=== PATIENT | male | born 1960 ===

== ENCOUNTER 2020-09-10 23:42 | Emergency (ER) | payer SELFPAY ==
--- NOTE | 2020-09-11 00:07 | ED ---
General Adult HPI - General Chief complaint: Chest Pain Stated complaint: Chest Pain Time Seen by Provider: 09/10/20 23:50 Source: patient, police, EMS Mode of arrival: EMS Limitations: no limitations - History of Present Illness Initial comments: 60-year-old male patient presents to the emergency department today for evaluation of headache and chest pain. Patient is being arrested when he started to have substernal chest pain. Denies radiation through to his back. He is reporting some left arm pain. States he also has a headache. States he did hit his head, he is refusing to provide information surrounding the head injury. Denies any loss of consciousness. States he doesn't remember what medications he takes, unsure Of Blood Thinning Medication. Denies Alcohol Use Today. Patient is being resistive to answering questions and is upset about being arrested. Patient denies any recent rash, fever, chills, cough, shortness of breath, abdominal pain, nausea, vomiting, diarrhea, constipation, back pain, numbness, tingling, dizziness, weakness, hematuria, dysuria, urinary urgency, urinary frequency, visual changes, or any other complaints. Does have history of diabetes, hypertension, and does smoke cigarettes. - Related Data Allergies Allergy/AdvReac Type Severity Reaction Status Date / Time ampicillin Allergy Rash/Hives Verified 09/10/20 23:55 Penicillins Allergy Rash/Hives Verified 09/10/20 23:54 Review of Systems ROS Statement: Those systems with pertinent positive or pertinent negative responses have been documented in the HPI. ROS Other: All systems not noted in ROS Statement are negative. Past Medical History Past Medical History: Diabetes Mellitus, Hypertension History of Any Multi-Drug Resistant Organisms: None Reported Past Surgical History: No Surgical Hx Reported Past Psychological History: No Psychological Hx Reported, Bipolar Smoking Status: Current every day smoker Past Alcohol Use History: None Reported Past Drug Use History: None Reported General Exam Limitations: no limitations General appearance: alert, in no apparent distress, other (Physical well- developed, well-nourished adult male patient in no acute distress. Vital signs upon presentation 98.1F, pulse 76, respirations 20, blood pressure 118/73, pulse ox 98% on room air.) Eye exam: Present: normal appearance, PERRL, EOMI. Absent: scleral icterus, conjunctival injection, nystagmus, periorbital swelling ENT exam: Present: normal exam, normal oropharynx, mucous membranes moist Neck exam: Present: normal inspection, full ROM, other (Nontender, no step-off, no deformity to firm midline palpation of the posterior cervical spine. Full range of motion without pain or limitation.). Absent: tenderness, meningismus, lymphadenopathy Respiratory exam: Present: normal lung sounds bilaterally. Absent: respiratory distress, wheezes, rales, rhonchi, stridor Cardiovascular Exam: Present: regular rate, normal rhythm, normal heart sounds. Absent: systolic murmur, diastolic murmur, rubs, gallop, clicks GI/Abdominal exam: Present: soft, normal bowel sounds. Absent: distended, tenderness, guarding, rebound, rigid Neurological exam: Present: alert, oriented X3, CN II-XII intact Psychiatric exam: Present: normal affect, normal mood Skin exam: Present: warm, dry, intact, normal color. Absent: rash Course Vital Signs 09/10/20 09/11/20 09/11/20 23:43 01:19 01:42 Temperature 98.1 F 98 F Pulse Rate 76 80 74 Respiratory 20 18 18 Rate Blood Pressure 118/73 118/73 158/89 O2 Sat by Pulse 98 97 100 Oximetry EKG Findings - EKG Comments: EKG Findings:: EKG obtained at 2349 shows normal sinus rhythm with a ventricular rate 83, [place] interval 136, QRS duration 96, QT 386, QTc 453. No evidence of ST elevation or depression. Medical Decision Making - Medical Decision Making 60-year-old male patient presents to the emergency department today reporting headache and chest pain after being arrested. Physical examination is unremarkable. He is neurologically intact without deficits. Lungs are clear to auscultation with good air movement. EKG showed no ST elevation or depression. Labs reviewed and are unremarkable. Troponin negative. CT brain is negative. Chest x-ray negative. A be discharged into police custody. Instructed to follow-up the primary care physician as soon as possible. Return parameters were discussed in detail. He verbalizes understanding. My attending is Dr. William. - Lab Data Result diagrams: 09/11/20 00:09 09/11/20 00:09 Lab Results 09/11/20 09/11/20 09/11/20 Range/Units 00:09 00:09 00:09 WBC 7.5 (3.8-10.6) k/uL RBC 4.75 (4.30-5.90) m/uL Hgb 13.8 (13.0-17.5) gm/dL Hct 40.6 (39.0-53.0) % MCV 85.4 (80.0-100.0) fL MCH 29.1 (25.0-35.0) pg MCHC 34.0 (31.0-37.0) g/dL RDW 13.2 (11.5-15.5) % Plt Count 228 (150-450) k/uL MPV 7.7 Neutrophils % 57 % Lymphocytes % 33 % Monocytes % 6 % Eosinophils % 2 % Basophils % 1 % Neutrophils # 4.3 (1.3-7.7) k/uL Lymphocytes # 2.5 (1.0-4.8) k/uL Monocytes # 0.4 (0-1.0) k/uL Eosinophils # 0.2 (0-0.7) k/uL Basophils # 0.1 (0-0.2) k/uL PT 10.5 (9.0-12.0) sec INR 1.0 (<1.2) APTT 24.2 (22.0-30.0) sec Sodium 138 (137-145) mmol/L Potassium 3.7 (3.5-5.1) mmol/L Chloride 105 (98-107) mmol/L Carbon Dioxide 27 (22-30) mmol/L Anion Gap 6 mmol/L BUN 14 (9-20) mg/dL Creatinine 0.74 (0.66-1.25) mg/dL Est GFR (CKD-EPI)AfAm >90 (>60 ml/min/1.73 sqM) Est GFR (CKD-EPI)NonAf >90 (>60 ml/min/1.73 sqM) Glucose 148 H (74-99) mg/dL Calcium 9.5 (8.4-10.2) mg/dL Magnesium 1.8 (1.6-2.3) mg/dL Total Bilirubin 0.6 (0.2-1.3) mg/dL AST 48 (17-59) U/L ALT 35 (4-49) U/L Alkaline Phosphatase 98 (38-126) U/L Troponin I (0.000-0.034) ng/mL Total Protein 6.8 (6.3-8.2) g/dL Albumin 4.1 (3.5-5.0) g/dL Serum Alcohol <10 mg/dL 09/11/20 Range/Units 00:09 WBC (3.8-10.6) k/uL RBC (4.30-5.90) m/uL Hgb (13.0-17.5) gm/dL Hct (39.0-53.0) % MCV (80.0-100.0) fL MCH (25.0-35.0) pg MCHC (31.0-37.0) g/dL RDW (11.5-15.5) % Plt Count (150-450) k/uL MPV Neutrophils % % Lymphocytes % % Monocytes % % Eosinophils % % Basophils % % Neutrophils # (1.3-7.7) k/uL Lymphocytes # (1.0-4.8) k/uL Monocytes # (0-1.0) k/uL Eosinophils # (0-0.7) k/uL Basophils # (0-0.2) k/uL PT (9.0-12.0) sec INR (<1.2) APTT (22.0-30.0) sec Sodium (137-145) mmol/L Potassium (3.5-5.1) mmol/L Chloride (98-107) mmol/L Carbon Dioxide (22-30) mmol/L Anion Gap mmol/L BUN (9-20) mg/dL Creatinine (0.66-1.25) mg/dL Est GFR (CKD-EPI)AfAm (>60 ml/min/1.73 sqM) Est GFR (CKD-EPI)NonAf (>60 ml/min/1.73 sqM) Glucose (74-99) mg/dL Calcium (8.4-10.2) mg/dL Magnesium (1.6-2.3) mg/dL Total Bilirubin (0.2-1.3) mg/dL AST (17-59) U/L ALT (4-49) U/L Alkaline Phosphatase (38-126) U/L Troponin I <0.012 (0.000-0.034) ng/mL Total Protein (6.3-8.2) g/dL Albumin (3.5-5.0) g/dL Serum Alcohol mg/dL - Radiology Data Radiology results: report reviewed, image reviewed CT brain without contrast obtained. Report is reviewed in its entirety. Impression by Dr. Ball shows head computed tomography scan normal for age. Minimal ethmoid sinusitis. Two-view x-ray of the chest was obtained report reviewed in its entirety. Impression by Dr. Ball shows no active cardiopulmonary disease. Disposition Clinical Impression: Headache, Chest pain, Medical clearance for incarceration Disposition: HOME SELF-CARE Condition: Good Instructions (If sedation given, give patient instructions): Chest Pain (ED), Acute Headache (ED) Is patient prescribed a controlled substance at d/c from ED?: No Referrals: None,Stated [Primary Care Provider] - 1-2 days Time of Disposition: 01:33
--- NOTE | 2020-09-11 00:32 | XR ---
EXAMINATION TYPE: XR chest 2V DATE OF EXAM: 09/11/2020 COMPARISON: NONE HISTORY: Chest pain TECHNIQUE: 2 views FINDINGS: There is no heart failure nor confluent pneumonic infiltrate. Costophrenic angles are clear . There are chest leads. There are no hilar masses. Bony thorax is intact. IMPRESSION: No active cardiopulmonary disease.
[2020-09-11 00:34] LABS: Partial Thromboplastin Time 24.2 sec (22.0-30.0); Prothrombin Time 10.5 sec (9.0-12.0)
[2020-09-11 00:35] LABS: ALT 35 U/L (4-49); AST 48 U/L (17-59); African American GFR (CKD) >90 (>60 ml/min/1.73 sqM); Albumin 4.1 g/dL (3.5-5.0); Alcohol <10 mg/dL; Alkaline Phosphatase 98 U/L (38-126); Anion Gap 6 mmol/L; Blood Urea Nitrogen 14 mg/dL (9-20); Calcium 9.5 mg/dL (8.4-10.2); Carbon Dioxide 27 mmol/L (22-30); Chloride 105 mmol/L (98-107); Glucose 148 mg/dL (74-99); Magnesium 1.8 mg/dL (1.6-2.3); Non-African American GFR(CKD) >90 (>60 ml/min/1.73 sqM); Potassium 3.7 mmol/L (3.5-5.1); Sodium 138 mmol/L (137-145); Total Bilirubin 0.6 mg/dL (0.2-1.3); Total Protein 6.8 g/dL (6.3-8.2)
[2020-09-11 00:36] LABS: Basophils # (A) 0.1 k/uL (0-0.2); Basophils % (A) 1 %; Eosinophils # (A) 0.2 k/uL (0-0.7); Eosinophils % (A) 2 %; HCT 40.6 % (39.0-53.0); HGB 13.8 gm/dL (13.0-17.5); Lymphocytes # (A) 2.5 k/uL (1.0-4.8); Lymphocytes % (A) 33 %; MCH 29.1 pg (25.0-35.0); MCV 85.4 fL (80.0-100.0); Mean Platelet Volume 7.7; Monocytes # (A) 0.4 k/uL (0-1.0); Monocytes % (A) 6 %; Neutrophils # (A) 4.3 k/uL (1.3-7.7); Neutrophils % (A) 57 %; Platelet Count 228 k/uL (150-450); RBC 4.75 m/uL (4.30-5.90); RDW 13.2 % (11.5-15.5); WBC 7.5 k/uL (3.8-10.6)
--- NOTE | 2020-09-11 00:55 | CT ---
EXAMINATION TYPE: CT brain wo con DATE OF EXAM: 09/11/2020 COMPARISON: None HISTORY: ams CT DLP: 1568.4 mGycm Automated exposure control for dose reduction was used. Ventricles have normal size. There is no mass effect nor midline shift. There is no sign of intracran ial hemorrhage. The calvarium is intact. The skull base is intact. There is minimal mucosal thickenin g in the ethmoid air cells. Mastoid sinuses appear normal. IMPRESSION: Head CT scan is normal for age. Minimal ethmoid sinusitis.
[2020-09-11 01:20] VITALS: RESP 18
[2020-09-11 01:43] VITALS: BP 158/89; PULSE 74; TEMP 98
== END 2020-09-11 01:42 | disposition home or self-care (01) ==
LOC: EC 23:42
DX: Z00.8 Encounter for other general examination (principal); R07.2 Precordial pain; R51.9 Headache, unspecified; I10 Essential (primary) hypertension; E11.9 Type 2 diabetes mellitus without complications; F17.200 Nicotine dependence, unspecified, uncomplicated; Z88.0 Allergy status to penicillin
CPT/HCPCS: 36415; 70450; 71046; 80053; 80320; 83735; 84484; 85025; 85610; 85730; 93005; 99285

== ENCOUNTER 2021-03-07 10:53 | Inpatient (IN) | payer OTHER ==
--- NOTE | 2021-03-07 12:11 | ED ---
General Adult HPI - General Chief complaint: Psychiatric Symptoms Stated complaint: petition Time Seen by Provider: 03/07/21 11:18 Source: patient Mode of arrival: ambulatory Limitations: language barrier - History of Present Illness Initial comments: Dictation was produced using [employer] dictation software. please excuse any grammatical, word or spelling errors. Chief Complaint: 60-year-old male presents emergency department for symptoms of acute psychosis History of Present Illness: 60-year-old male presents emergency department for worsening psychotic symptoms. Patient allegedly has a history of psychiatric disease. He is a poor historian. Presents with [employer]. Patient unable to provide history present illness. He's been having rambling speech. Going to L[facility] patient is known for talking to himself however there is been concerns that he has not been taking his medications. Patient petitioned by [facility]. The ROS documented in this emergency department record has been reviewed and confirmed by me. Those systems with pertinent positive or negative responses have been documented in the HPI. All other systems are other negative and/or noncontributory. PHYSICAL EXAM: General Impression: Alert and oriented x3, not in acute distress HEENT: Normocephalic atraumatic, extra-ocular movements intact, pupils equal and reactive to light bilaterally, mucous membranes moist. Cardiovascular: Heart regular rate and rhythm Chest: Able to complete full sentences, no retractions, no tachypnea Abdomen: abdomen soft, non-tender, non-distended, no organomegaly Musculoskeletal: Pulses present and equal in all extremities, no peripheral edema Motor: no focal deficits noted Neurological: CN II-XII grossly intact, no focal motor or sensory deficits noted Skin: Intact with no visualized rashes Psych: Tangential speech, flat affect ED course: 60-year-old male presents to the emergency department for worsening psychotic symptoms. He is not been compliant with his psychiatric medications. Vital signs upon arrival are within acceptable limits. Urinalysis does not show any UTI. Blood glucose is normal. Patient medically cleared for EPS. EPS we'll have patient admitted to inpatient psychiatry. Certification documentation was completed. - Related Data Home Medications Medication Instructions Recorded Confirmed Atorvastatin [Lipitor] 20 mg PO HS 03/07/21 03/07/21 Ciprofloxacin HCl [Cipro] 500 mg PO BID 03/07/21 03/07/21 glipiZIDE [Glucotrol] 5 mg PO DAILY 03/07/21 03/07/21 metFORMIN HCL [Glucophage] 850 mg PO TID 03/07/21 03/07/21 Allergies Allergy/AdvReac Type Severity Reaction Status Date / Time ampicillin Allergy Rash/Hives Verified 03/07/21 12:45 Penicillins Allergy Rash/Hives Verified 03/07/21 12:45 Review of Systems ROS Statement: Those systems with pertinent positive or pertinent negative responses have been documented in the HPI. ROS Other: All systems not noted in ROS Statement are negative. Past Medical History Past Medical History: Diabetes Mellitus, Hypertension History of Any Multi-Drug Resistant Organisms: None Reported Past Surgical History: No Surgical Hx Reported Past Psychological History: No Psychological Hx Reported, Bipolar Smoking Status: Current every day smoker Past Alcohol Use History: None Reported Past Drug Use History: None Reported General Exam Limitations: language barrier Course Vital Signs 03/07/21 11:01 Temperature 98.2 F Pulse Rate 91 Respiratory 18 Rate Blood Pressure 131/84 O2 Sat by Pulse 97 Oximetry Medical Decision Making - Lab Data Lab Results 03/07/21 03/07/21 Range/Units 13:07 13:25 POC Glucose (mg/dL) 89 (75-99) mg/dL POC Glu Field Research Assistant ID Pushpa Pope Urine Color Yellow Urine Appearance Clear (Clear) Urine pH 5.0 (5.0-8.0) Ur Specific Banks 1.018 (1.001-1.035) Urine Protein Trace H (Negative) Urine Glucose (UA) 4+ H (Negative) Urine Ketones Negative (Negative) Urine Blood Negative (Negative) Urine Nitrite Negative (Negative) Urine Bilirubin Negative (Negative) Urine Urobilinogen <2.0 (<2.0) mg/dL Ur Leukocyte Esterase Negative (Negative) Disposition Clinical Impression: Psychosis Disposition: ADMITTED IP TO THIS HOSP Condition: Fair Referrals: Nonstaff,Physician [Primary Care Provider] - 1-2 days
[2021-03-07 13:08] LABS: Glucose,Whole Blood 89 mg/dL (75-99)
[2021-03-07 13:56] LABS: Appearance,Urine Clear (Clear); Bilirubin,Urine Negative (Negative); Blood,Urine Negative (Negative); Color,Urine Yellow; Glucose,Urine (UA) 4+ (Negative); Ketones,Urine Negative (Negative); Leukocyte Esterase,Urine Negative (Negative); Nitrite,Urine Negative (Negative); Protein,Urine Trace (Negative); Specific Gravity,Urine 1.018 (1.001-1.035); Urobilinogen,Urine <2.0 mg/dL (<2.0)
[2021-03-07] MEDS ORDERED: MAG HYDROX/AL HYDROX/SIMETH 30 ML CUP PO PRN (16:34)
[2021-03-07] MEDS ORDERED: MAGNESIUM HYDROXIDE 2,400 MG/10 ML CUP PO PRN (16:34)
[2021-03-07] MEDS ORDERED: ACETAMINOPHEN TAB 325 MG TAB PO PRN (16:34)
[2021-03-07] MEDS ORDERED: haloperidoL 5 MG TAB PO PRN (16:38)
[2021-03-07] MEDS ORDERED: HALOPERIDOL LACTATE 5 MG/ML 1 ML VIAL IM PRN (16:38)
[2021-03-07 17:38] LABS: Glucose,Whole Blood 110 mg/dL (75-99)
[2021-03-07] MEDS: NICOTINE 14MG/24HR PATCH TRANSDERM SCH (18:05)
[2021-03-07] MEDS: ATORVASTATIN 20 MG TAB PO SCH (22:16)
[2021-03-07] MEDS: metFORMIN 850 MG TAB PO SCH (22:16)
--- NOTE | 2021-03-08 01:03 | P.CONS ---
History of Present Illness - Reason for Consult Consult date: 03/07/21 - History of Present Illness The patient is a 60-year-old male with a PMH of psychiatric illnesses, type II DM and hyperlipidemia who was brought into the emergency room under police custody due to erratic behavior and disorganized thought process. The patient was admitted with mental health unit where he was seen and evaluated. The patient continued having disorganized and tangential thought process. He kept inquiring about wanting to undergo surgeries of his abdomen although could not state any particular reason. He also inquired multiple times about wanting to undergo radiological scans and surgery for his brain for reasons he could not explain. He denied chest discomfort, nausea, vomiting, abdominal pain, diarrhea. Denied fever, chills. Review of systems: Pertinent positives and negatives as discussed in HPI, a complete review of systems was performed and all other systems are negative. Physical examination: General: non toxic, no distress, appears at stated age, morbidly obese Derm: no unusual rashes/lesions no unusual ecchymoses, warm, dry Head: atraumatic, normocephalic, symmetric Eyes: EOMI, no lid lag, anicteric sclera, pupils equal round reactive to light ENT: Nose and ears atraumatic, no thrush, no pharyngeal erythema Neck: No thyromegaly, no cervical lymphadenopathy, trachea midline, supple Mouth: no lip lesion, mucus membranes moist Cardiovascular: S1S2 reg, no murmur, positive posterior tibial pulse bilateral, no edema, capillary refill less than 2 seconds Lungs: CTA bilateral, no rhonchi, no rales , no accessory muscle use Abdominal: soft, nontender to palpation, no guarding, no appreciable organomegaly, normal bowel sounds Ext: no gross muscle atrophy, muscle strength 5 out of 5 in all 4 extremities grossly, no contractures, Neuro: CN II-XI grossly intact, light touch intact all 4 extremities, finger to nose within normal limits, Psych: Alert, oriented, disorganized and tangential thought process Assessment/plan Chronic conditions: Type II DM, hyperlipidemia -Continue with home meds Psychosis -As per psychiatry Thank you for allowing us to participate in the care of this patient. We will follow peripherally. Do not hesitate to contact us with questions. Someone can be reached from the [facility] hospitalist group at all hours of the day at [phone]. Past Medical History Past Medical History: Diabetes Mellitus, Hypertension History of Any Multi-Drug Resistant Organisms: None Reported Past Surgical History: No Surgical Hx Reported Past Anesthesia/Blood Transfusion Reactions: No Reported Reaction Past Psychological History: No Psychological Hx Reported, Bipolar Smoking Status: Current every day smoker Past Alcohol Use History: None Reported Past Drug Use History: None Reported - Past Family History Father Family Medical History: Unable to Obtain Additional Family Medical History / Comment(s): Patient poor historian Medications and Allergies Home Medications Medication Instructions Recorded Confirmed Type Atorvastatin [Lipitor] 20 mg PO HS 03/07/21 03/07/21 History Ciprofloxacin HCl [Cipro] 500 mg PO BID 03/07/21 03/07/21 History glipiZIDE [Glucotrol] 5 mg PO DAILY 03/07/21 03/07/21 History metFORMIN HCL [Glucophage] 850 mg PO TID 03/07/21 03/07/21 History Allergies Allergy/AdvReac Type Severity Reaction Status Date / Time ampicillin Allergy Rash/Hives Verified 03/07/21 12:45 Penicillins Allergy Rash/Hives Verified 03/07/21 12:45 Physical Exam Vitals: Vital Signs Temp Pulse Pulse Resp BP BP Pulse Ox 03/07/21 17:13 98.6 F 91 18 127/76 03/07/21 11:01 98.2 F 91 18 131/84 97 Intake and Output 03/07/21 03/07/21 03/07/21 06:59 14:59 22:59 Other: Weight 108.862 kg 108.862 kg Results Labs: Abnormal Lab Results - Last 24 Hours (Table) 03/07/21 03/07/21 Range/Units 13:25 17:37 POC Glucose (mg/dL) 110 H (75-99) mg/dL Urine Protein Trace H (Negative) Urine Glucose (UA) 4+ H (Negative)
[2021-03-08] MEDS ORDERED: chlorproMAZINE 25 MG/ML 2 ML AMP IM ONE (01:38)
[2021-03-08] MEDS ORDERED: chlorproMAZINE 25 MG/ML 2 ML AMP IM PRN (01:39)
[2021-03-08] MEDS ORDERED: chlorproMAZINE 25 MG TAB PO PRN (01:39)
[2021-03-08] MEDS: LORazepam 2 MG/ML INJ IM PRN (01:55)
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
[2021-03-08] MEDS: NICOTINE 14MG/24HR PATCH TRANSDERM SCH (09:00)
[2021-03-08 11:03] LABS: Glucose,Whole Blood 146 mg/dL (75-99)
[2021-03-08] MEDS: metFORMIN 850 MG TAB PO SCH ×3 (11:03→22:08)
[2021-03-08] MEDS: glipiZIDE 5 MG TAB PO SCH (11:03)
[2021-03-08] MEDS: LORazepam 1 MG TAB PO PRN (11:03)
--- NOTE | 2021-03-08 11:54 | P.HP ---
Psychiatric H&P - . H&P Date: 03/08/21 History & Physical: Allergies Allergy/AdvReac Type Severity Reaction Status Date / Time ampicillin Allergy Rash/Hives Verified 03/07/21 12:45 Penicillins Allergy Rash/Hives Verified 03/07/21 12:45 Vital Signs Temp 98.6 F 03/07/21 17:13 Pulse 121 H 03/08/21 11:07 Resp 21 03/08/21 02:00 BP 135/69 03/08/21 11:07 Pulse Ox 96 03/08/21 02:00 Intake & Output 03/07/21 03/08/21 03/08/21 18:59 06:59 18:59 Weight 108.862 kg Laboratory Last Values POC Glucose (mg/dL) 146 mg/dL (75-99) H 03/08/21 11:02 POC Glu Workers Compensation Manager Marilou Dodson 03/08/21 11:02 Urine Color Yellow 03/07/21 13:25 Urine Appearance Clear (Clear) 03/07/21 13:25 Urine pH 5.0 (5.0-8.0) 03/07/21 13:25 Ur Specific [place] 1.018 (1.001-1.035) 03/07/21 13:25 Urine Protein Trace (Negative) H 03/07/21 13:25 Urine Glucose (UA) 4+ (Negative) H 03/07/21 13:25 Urine Ketones Negative (Negative) 03/07/21 13:25 Urine Blood Negative (Negative) 03/07/21 13:25 Urine Nitrite Negative (Negative) 03/07/21 13:25 Urine Bilirubin Negative (Negative) 03/07/21 13:25 Urine Urobilinogen <2.0 mg/dL (<2.0) 03/07/21 13:25 Ur Leukocyte Esterase Negative (Negative) 03/07/21 13:25 Coronavirus (PCR) Not Detected (Not Detectd) 03/07/21 13:59 03/08/21 11:54 IDENTIFYING DATA: Patient is a , unemployed, 6-year-old male who is currently a [facility] hold who presented [facility] the emergency department from [facility] for acute psychotic behavior. HPI: Patient presented to the hospital on 03/07/2021, brought in by police under petition. As per petition by the social media senior associate, the patient was expressing acute psychosis. He was not displaying inability to care for his basic needs and wasn't consistent taking his medical medications. Upon evaluation in the emergency department, the patient appeared to be disheveled in appearance and at times was inarticulate in his speech. He was also noted to be responding to internal stimuli and reported to the EPS nurse that he was speaking with his daughter. He also stated "I see fish for making soup." He was a poor historian and was reportedly not sleeping well or taking his medications. The patient was subsequently certified and admitted to the psychiatric unit. During the patient's first night on the unit, the patient displayed significant agitated behavior and began to scream at staff and became threatening and combative. He was not directable and was attempting to enter another patient's room. He also entered the other patient's room and barricaded himself against the door. While in the other patient's room he began screaming and yelling and so did the other patient. Security and staff were able to get the door open and as the patient was uncooperative, combative, and yelling, the patient was placed in 4 point restraints and was given IM Thorazine and Ativan. When evaluated by this provider, the patient appears to be disorganized and a poor historian at this time. He is able to identify that he is in [facility] but had to be reminded that he is currently admitted in the psychiatric unit. He does admit that he has a history of mental illness and does report hearing voices. He is unable to elaborate. The patient is grossly disorganized. He appears to be fixated on a peer on the unit and also inappropriately asked this provider to give him the contact information of female relatives so that he may romance them. The patient is otherwise not reporting any significant health issues or concerns at this time. It is noted by staff that the patient continues to be intrusive in other people's personal space, in particular with female staff. He has to be constantly redirected. PAST PSYCHIATRIC HISTORY: The patient does report significant history of mental illness however is unable to verbalize any diagnoses. As per chart review, the patient has reportedly had an inpatient psychiatric admission for 6-7 months in [place], [place] and 3-4 weeks [place], [place]. Unable to determine at this time any previous medication trials that the patient has had. PMH: Past Medical History: Diabetes Mellitus, Hypertension History of Any Multi-Drug Resistant Organisms: None Reported Past Surgical History: No Surgical Hx Reported Past Anesthesia/Blood Transfusion Reactions: No Reported Reaction Past Psychological History: No Psychological Hx Reported, Bipolar Smoking Status: Current every day smoker Past Alcohol Use History: None Reported Past Drug Use History: None Reported ALLERGIES: Penicillin and ampicillin CHEMICAL DEPENDENCY HISTORY: Patient currently denies any alcohol or street drug use. Patient is noted to be an everyday smoker. FAMILY PSYCHIATRIC/SUBSTANCE USE HISTORY: Unable to assess at this time. SOCIAL HISTORY: The patient reportedly lives with his son but is currently an inmate at the [facility]. The patient reports that he is currently incarcerated because he "stole a car." He reports that he has 6 children. He states that his home is in "[place], [place]." He reports that he has been in [facility] since September [id number]. MENTAL STATUS EXAM: General Appearance: Patient appears to be stated age is somewhat somnolent, difficult to direct, but attempts to cooperate. Patient appears to have poor hygiene and grooming. Obese body habitus. Behavior: Patient is seated without any agitated behavior. Psychomotor activity appears slightly elevated. Speech: Patient's speech is disorganized and nonsensical at times. The patient tends to fluctuate between Azeri and [place]an. Mood/Affect: Patient reports their mood is "okay," affect is bizarre and flirtatious. Suicidality/Homicidality: Unable to assess. Perceptions: Patient endorses auditory hallucinations. Unable to assess for visual hallucinations. Though content/process: The patient appears to be fixated on female peers and staff has noted to be sexually inappropriate. His thought process appears to be grossly disorganized otherwise. Memory and concentration: Grossly poor Judgment and insight: Very poor STRENGTHS/WEAKNESSES: Unable to identify patient's strengths at this time. Weakness that the patient is currently incarcerated and appears to have severe mental illness that has been untreated. The patient also appears to wander around the [place]. INTELLECT: Average to below average IMPRESSIONS: Acute psychotic episode; suspect acute exacerbation of chronic schizophrenia Nicotine dependence PLAN: -Patient is admitted under involuntary status to [facility] for stabilization of psychiatric symptoms and safety. A second certification was completed and along with petition will be filed for court. -Medications : Will start patient on Haldol 3 mg by mouth twice a day for acute psychosis. -Ativan and Thorazine PRN for agitation/aggression -Patient was informed of the risks, benefits and side effects of the medication and patient verbally consented to taking the medications. Patient is unable to sign for medication consent although verbally consented. -Internal Medicine consult to perform medical evaluation and physical. -NRT - nicotine patch -SW on board for discharge planning. Encourage patient to participate in groups to work on coping skills. 03/08/21 11:54
[2021-03-08] MEDS: ATORVASTATIN 20 MG TAB PO SCH (22:07)
[2021-03-08] MEDS: haloperidoL 1 MG TAB PO SCH (22:07)
[2021-03-09] MEDS: LORazepam 2 MG/ML INJ IM PRN ×2 (03:21→14:25)
--- NOTE | 2021-03-09 03:54 | P.MHFACE ---
Face to Face Restrain/Seclus - Evaluation Patient's Immediate Situation: Endangers others' safety, Endangers staff safety Patient's Immediate Situation - Comment: As per the public health staff nurse, the patient had walked out of his room naked. When an RN attempted to redirect him, he charged at her. She was able to get behind a door, at which time he started slamming the door trying to force his way in. Patient's Reaction to the Intervention: Appropriate, Calm Patient's Medical & Behavioral Condition: Awake, Alert Need to Continue or Terminate Restraint or Seclusion: Continue Need to Continue or Terminate Restraint/Seclusion - Comment: The patient was given sedatives. Good circulation in all extremities with pulses intact. Continue with the restraints until the patient is sedated. Plan to discontinue restraints as soon as possible. Face to Face Eval of Restraint Date: 03/09/21 Face to Face Eval of Restraint Time: 03:45
[2021-03-09] MEDS: LORazepam 1 MG TAB PO PRN ×2 (10:42→20:53)
[2021-03-09] MEDS: glipiZIDE 5 MG TAB PO SCH (10:43)
[2021-03-09] MEDS: metFORMIN 850 MG TAB PO SCH ×4 (10:43→21:39)
[2021-03-09] MEDS: haloperidoL 1 MG TAB PO SCH ×3 (10:43→21:39)
[2021-03-09] MEDS: NICOTINE 14MG/24HR PATCH TRANSDERM SCH (10:55)
[2021-03-09] MEDS ORDERED: chlorproMAZINE 25 MG TAB PO PRN (11:00)
[2021-03-09] MEDS: chlorproMAZINE 25 MG/ML 2 ML AMP IM PRN (11:29)
--- NOTE | 2021-03-09 11:41 | P.PN ---
Progress Note - Text Progress Note Date: 03/09/21 Interval History: Patient was seen wandering the hallways but appeared nonsensical speech. As per chart review, the patient has been noted last night. Very agitated, difficult to direct, and sexually inappropriate with staff and peers. The patient required a Mr. ulloa and was placed in 4-point restraints at 3:24 AM last night. He was administered Ativan 2 mg IM and Thorazine 75 mg IM. The patient continues to be disorganized and is often fixated on female staff and peers. He appears to have a poor understanding of where and why he is currently admitted into a psychiatric unit. He has been intermittently inherent with his medications. Mental Status Exam: General Appearance: Patient appears to be stated age, obese body habitus, with poor hygiene and grooming, and is often times not wearing any lower parents. Behavior: Patient is currently somnolent but is otherwise pacing the hallways. Speech: Patient's speech is fluent and nonpressured. Monotone. Occasionally in Gabonese. Mood/Affect: Mood is tired. Affect is congruent and somnolent. Suicidality/Homicidality: Unable to assess Perceptions: Unable to assess Though content/process: Patient appears to be grossly disorganized. He has a poor concept of reality. Memory and concentration: Grossly poor Judgment and insight: Very poor Vital Signs Temp 97.8 F 03/09/21 03:26 Pulse 109 H 03/09/21 03:26 Resp 20 03/09/21 03:26 BP 112/56 03/09/21 03:26 Pulse Ox 96 03/09/21 03:26 Assessment Acute psychotic episode; suspect acute exacerbation of chronic schizophrenia Nicotine dependence Plan: -Patient continues to meet criteria for inpatient psychiatric admission for symptom stabilization and safety. Second clinical certificate was filled out by this provider. -Medications: Continue Haldol 3 mg by mouth twice a day for management of schizophrenia. The patient has received multiple IM Thorazine medications. We will increase the IM when necessary Thorazine to 100 mg. We will start the patient on Paxil 30 mg by mouth daily to decrease patient's sexually inappropriate behavior. -When necessary Ativan and Thorazine for agitation/aggression. -NRT - nicotine patch -SW on board for discharge planning. Encouraged the patient to participate in milieu.
[2021-03-09] MEDS ORDERED: HALOPERIDOL LACTATE 5 MG/ML 1 ML VIAL IM PRN (14:16)
[2021-03-09] MEDS: diphenhydrAMINE 50 MG/ML 1 ML VIAL IM PRN ×2 (14:24→14:26)
[2021-03-09] MEDS ORDERED: HALOPERIDOL LACTATE 5 MG/ML 1 ML VIAL IM STA (14:27)
[2021-03-09] MEDS ORDERED: HALOPERIDOL LACTATE 5 MG/ML 1 ML VIAL IM SCH (18:00)
[2021-03-09] MEDS: ATORVASTATIN 20 MG TAB PO SCH (20:53)
[2021-03-10] MEDS: chlorproMAZINE 25 MG/ML 2 ML AMP IM PRN (11:36)
[2021-03-10] MEDS: LORazepam 2 MG/ML INJ IM PRN (11:37)
[2021-03-10] MEDS: NICOTINE 14MG/24HR PATCH TRANSDERM SCH (11:59)
[2021-03-10] MEDS: glipiZIDE 5 MG TAB PO SCH (11:59)
[2021-03-10] MEDS: haloperidoL 1 MG TAB PO SCH (11:59)
[2021-03-10] MEDS: metFORMIN 850 MG TAB PO SCH ×2 (11:59→15:58)
[2021-03-10] MEDS: PARoxetine 10 MG TAB PO SCH (11:59)
--- NOTE | 2021-03-10 12:31 | P.HP ---
Psychiatric H&P - . H&P Date: 03/10/21 History & Physical: Allergies Allergy/AdvReac Type Severity Reaction Status Date / Time ampicillin Allergy Rash/Hives Verified 03/07/21 12:45 Penicillins Allergy Rash/Hives Verified 03/07/21 12:45 Vital Signs Temp 97.8 F 03/09/21 03:26 Pulse 109 H 03/09/21 03:26 Resp 20 03/09/21 03:26 BP 112/56 03/09/21 03:26 Pulse Ox 96 03/09/21 03:26 Laboratory Last Values POC Glucose (mg/dL) 146 mg/dL (75-99) H 03/08/21 11:02 POC Glu Real Estate Administrative Assistant ID Marilou Trinh 03/08/21 11:02 Urine Color Yellow 03/07/21 13:25 Urine Appearance Clear (Clear) 03/07/21 13:25 Urine pH 5.0 (5.0-8.0) 03/07/21 13:25 Ur Specific [place] 1.018 (1.001-1.035) 03/07/21 13:25 Urine Protein Trace (Negative) H 03/07/21 13:25 Urine Glucose (UA) 4+ (Negative) H 03/07/21 13:25 Urine Ketones Negative (Negative) 03/07/21 13:25 Urine Blood Negative (Negative) 03/07/21 13:25 Urine Nitrite Negative (Negative) 03/07/21 13:25 Urine Bilirubin Negative (Negative) 03/07/21 13:25 Urine Urobilinogen <2.0 mg/dL (<2.0) 03/07/21 13:25 Ur Leukocyte Esterase Negative (Negative) 03/07/21 13:25 Coronavirus (PCR) Not Detected (Not Detectd) 03/07/21 13:59 03/10/21 12:28 Subjective data:/Subjective data The patient currently is in the seclusion room The patient is off the restraints and is monitored by staff He is at this time resting comfortably and is not exhibiting any signs of agitation or aggression Staff is monitoring the patient's behavior on the camera where they have seen him Pee into the air conditioning patient is general still exhibits impaired judgment and insight and impulsivity Patient remains high risk to himself or others and continues to need current observations operative care and safety precautions We will continue supportive care and when necessary medications as needed including seclusion as gerri Junior md 03/10/21
[2021-03-10] MEDS: ATORVASTATIN 20 MG TAB PO SCH (21:00)
[2021-03-11] MEDS: haloperidoL 1 MG TAB PO SCH ×4 (03:57→20:01)
[2021-03-11] MEDS: metFORMIN 850 MG TAB PO SCH ×4 (03:57→20:02)
[2021-03-11] MEDS: glipiZIDE 5 MG TAB PO SCH (09:09)
[2021-03-11] MEDS: NICOTINE 14MG/24HR PATCH TRANSDERM SCH (09:10)
[2021-03-11] MEDS: PARoxetine 10 MG TAB PO SCH ×2 (11:29→13:15)
--- NOTE | 2021-03-11 12:06 | P.PN ---
Subjective Progress Note Date: 03/11/21 Principal diagnosis: Psychotic disorder unspecified Rule out schizophrenia chronic undifferentiated type Intermittent explosive disorder Subjective/subjective data: The patient is currently in his room where he is being monitored one-to-one by one of the staff members The patient was this time sleeping soundly and could hear him snoring The patient could not be assessed any further at this time Impression: Acute psychotic disorder unspecified Rule out schizophrenia chronic and differentiated type Intermittent explosive disorder Plan: The patient at this time is on several when necessary medications including Thorazine 100 mg daily He is also on haloperidol 3 mg daily on a scheduled dosage We'll continue close monitoring and supportive care to avoid any acting out and aggression to others staff or peers Monitor for EPS tremor started dyskinesia akathisia QTC prolongation electrolyte imbalance Kenneth Junior M.D. 03/11/21 Objective - Vital Signs Vital signs: Vital Signs Temp 97.6 F 03/11/21 05:23 Pulse 113 H 03/11/21 05:23 Resp 18 03/11/21 05:23 BP 115/73 03/11/21 05:23 Pulse Ox 96 03/09/21 03:26
[2021-03-11] MEDS: ATORVASTATIN 20 MG TAB PO SCH (20:02)
[2021-03-12 07:03] VITALS: TEMP 97.1
[2021-03-12 07:50] LABS: Glucose,Whole Blood 139 mg/dL (75-99)
[2021-03-12] MEDS: NICOTINE 14MG/24HR PATCH TRANSDERM SCH (08:42)
[2021-03-12] MEDS: haloperidoL 1 MG TAB PO SCH ×3 (08:42→23:56)
[2021-03-12] MEDS: PARoxetine 10 MG TAB PO SCH (08:42)
[2021-03-12] MEDS: glipiZIDE 5 MG TAB PO SCH (08:43)
[2021-03-12] MEDS: metFORMIN 850 MG TAB PO SCH ×4 (08:43→23:56)
[2021-03-12] MEDS ORDERED: HALOPERIDOL DECANOATE 50 MG/ML 1 ML VIAL IM STA (10:54)
[2021-03-12 11:40] LABS: Basophils % (A) 0 %; Eosinophils # (A) 0.2 k/uL (0-0.7); Eosinophils % (A) 3 %; HCT 40.1 % (39.0-53.0); HGB 12.8 gm/dL (13.0-17.5); Lymphocytes # (A) 2.4 k/uL (1.0-4.8); Lymphocytes % (A) 26 %; MCH 28.7 pg (25.0-35.0); MCHC 31.9 g/dL (31.0-37.0); Mean Platelet Volume 8.4; Monocytes # (A) 0.5 k/uL (0-1.0); Monocytes % (A) 5 %; Neutrophils # (A) 5.9 k/uL (1.3-7.7); Neutrophils % (A) 64 %; Platelet Count 256 k/uL (150-450); RBC 4.45 m/uL (4.30-5.90); WBC 9.2 k/uL (3.8-10.6)
[2021-03-12 11:57] LABS: ALT 21 U/L (4-49); AST 31 U/L (17-59); African American GFR (CKD) >90 (>60 ml/min/1.73 sqM); Albumin 3.8 g/dL (3.5-5.0); Alkaline Phosphatase 65 U/L (38-126); Anion Gap 9 mmol/L; Blood Urea Nitrogen 10 mg/dL (9-20); Calcium 8.8 mg/dL (8.4-10.2); Carbon Dioxide 28 mmol/L (22-30); Chloride 98 mmol/L (98-107); Glucose 321 mg/dL (74-99); Non-African American GFR(CKD) >90 (>60 ml/min/1.73 sqM); Sodium 135 mmol/L (137-145); Total Bilirubin 0.7 mg/dL (0.2-1.3); Total Protein 6.9 g/dL (6.3-8.2)
--- NOTE | 2021-03-12 12:00 | P.PN ---
Progress Note - Text Progress Note Date: 03/12/21 Interval History: Patient was seen resting in bed and was directable and agreeable to speak with the appeals writer in the quiet room. The patient has been adherent with his medications and is currently not reporting any suicidal or homicidal ideation, intention, or plan. He is currently denying any overt auditory or visual hallucinations. He denies any paranoia or other delusions. The patient does appear to have some future orientation stating that he would like to be discha rged. He does express an understanding that he is currently in intermediate hold. He is agreeable to receiving long-acting Haldol Decanoate today. He has been tolerating his medications and not reporting any significant side effects. The patient continues to display some disorganization and continues to be sexually inappropriate with peers and staff of the opposite gender. He has not required IM medications over the past 24 hours Mental Status Exam: General Appearance: Patient appears to be stated age is alert, directable, and cooperative. Obese body habitus with poor hygiene and grooming. Behavior: Patient is calmly lying down in bed without any agitated behavior. Speech: Patient's speech is fluent and nonpressured. Mood/Affect: Mood is okay, affect is congruent and blunted. Suicidality/Homicidality: Patient denies having any suicidal or homicidal ideation intent or plan. Perceptions: Patient denies any visual hallucinations and denies any auditory hallucinations Though content/process: There is no evidence of any delusional thought content and thought process is linear and goal-directed. Memory and concentration: AOX3, grossly intact for the purposes of this session Judgment and insight: Improving mildly Vital Signs Temp 97.1 F L 03/12/21 07:02 Pulse 101 H 03/12/21 07:02 Resp 18 03/12/21 07:02 BP 141/78 03/12/21 07:02 Pulse Ox 96 03/09/21 03:26 Laboratory Results - Last 24 Hours 03/12/21 03/12/21 03/12/21 07:48 11:22 11:22 WBC 9.2 RBC 4.45 Hgb 12.8 L Hct 40.1 MCV 90.0 MCH 28.7 MCHC 31.9 RDW 14.0 Plt Count 256 MPV 8.4 Neutrophils % 64 Lymphocytes % 26 Monocytes % 5 Eosinophils % 3 Basophils % 0 Neutrophils # 5.9 Lymphocytes # 2.4 Monocytes # 0.5 Eosinophils # 0.2 Basophils # 0.0 Sodium 135 L Potassium 4.0 Chloride 98 Carbon Dioxide 28 Anion Gap 9 BUN 10 Creatinine 0.66 Est GFR (CKD-EPI)AfAm >90 Est GFR (CKD-EPI)NonAf >90 Glucose 321 H POC Glucose (mg/dL) 139 H POC Glu Glue Bone Crusher ID Noreen Mc Calcium 8.8 Total Bilirubin 0.7 AST 31 ALT 21 Alkaline Phosphatase 65 Total Protein 6.9 Albumin 3.8 Assessment Schizophrenia Nicotine dependence Plan: -Patient continues to meet criteria for inpatient psychiatric admission for symptom stabilization and safety. The patient has been petitioned and certified. -Medications: Continue Haldol 3 mg by mouth twice a day for management of schizophrenia. We'll administer Haldol Decanoate 50 mg IM today for management of schizophrenia. Continue Paxil 30 mg by mouth daily for depression/anxiety -When necessary Ativan, Benadryl, and Thorazine for agitation/aggression. -NRT - nicotine patch -SW on board for discharge planning. Encouraged the patient to participate in milieu.
[2021-03-12] MEDS: ATORVASTATIN 20 MG TAB PO SCH ×2 (23:37→23:57)
[2021-03-13 00:01] VITALS: BP 98/65; PULSE 107; RESP 16
[2021-03-13] MEDS: PARoxetine 10 MG TAB PO SCH (09:27)
[2021-03-13] MEDS: glipiZIDE 5 MG TAB PO SCH (09:27)
[2021-03-13] MEDS: haloperidoL 1 MG TAB PO SCH (09:27)
[2021-03-13] MEDS: metFORMIN 850 MG TAB PO SCH (09:28)
[2021-03-13] MEDS: NICOTINE 14MG/24HR PATCH TRANSDERM SCH (09:28)
--- NOTE | 2021-03-13 10:29 | P.DS ---
Providers Date of admission: 03/07/21 16:18 Expected date of discharge: 03/13/21 Attending physician: Coy Brambila MD Consults: 03/07/21 16:34 Consult Physician Routine Consulting Provider: Pasquale Ko Consult Reason/Comments: history and physical/medical management Do you want consulting provider notified?: Yes Primary care physician: Physician Nonstaff - Discharge Diagnosis(es) (1) Schizophrenia Current Visit: Yes Status: Acute Priority: High (2) Nicotine dependence Current Visit: Yes Status: Chronic Priority: Medium Hospital Course: Admission HPI: Patient is a , unemployed, 6-year-old male who is currently a halfway hold who presented to the emergency department from halfway for acute psychotic behavior. Patient presented to the hospital on 03/07/2021, brought in by police under petition. As per petition by the foster care social worker, the patient was expressing acute psychosis. He was not displaying inability to care for his basic needs and wasn't consistent taking his medical medications. Upon evaluation in the emergency department, the patient appeared to be disheveled in appearance and at times was inarticulate in his speech. He was also noted to be responding to internal stimuli and reported to the EPS nurse that he was speaking with his daughter. He also stated "I see fish for making soup." He was a poor historian and was reportedly not sleeping well or taking his medications. The patient was subsequently certified and admitted to the psychiatric unit. During the patient's first night on the unit, the patient displayed significant agitated behavior and began to scream at staff and became threatening and combative. He was not directable and was attempting to enter another patient's room. He also entered the other patient's room and barricaded himself against the door. While in the other patient's room he began screaming and yelling and so did the other patient. Security and staff were able to get the door open and as the patient was uncooperative, combative, and yelling, the patient was placed in 4 point restraints and was given IM Thorazine and Ativan. When evaluated by this provider, the patient appears to be disorganized and a poor historian at this time. He is able to identify that he is in halfway but had to be reminded that he is currently admitted in the psychiatric unit. He does admit that he has a history of mental illness and does report hearing voices. He is unable to elaborate. The patient is grossly disorganized. He appears to be fixated on a peer on the unit and also inappropriately asked this provider to give him the contact information of female relatives so that he may romance them. The patient is otherwise not reporting any significant health issues or concerns at this time. It is noted by staff that the patient continues to be intrusive in other people's personal space, in particular with female staff. He has to be constantly redirected. The patient does report significant history of mental illness however is unable to verbalize any diagnoses. As per chart review, the patient has reportedly had an inpatient psychiatric admission for 6-7 months in [place], [place] and 3-4 weeks [place], [place]. Unable to determine at this time any previous medication trials that the patient has had. Hospital course: Upon admission to the unit patient was initially psychotic, agitated, and difficult to direct. He required multiple restraints and multiple IM medications. He was initially psychotic to the point that he was refusing any medications and had no insight or judgment into his actions. The patient received multiple IM Thorazine and Ativan. During this hospitalization, the patient has been inappropriately approaching female staff and peers. Eventually, the patient was agreeable to taking oral Haldol. As a patient began taking the oral medication, he displayed significant improvement regards to his target symptoms of acute psychotic behavior. 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 The patient was compliant with his medications and was eventually transitioned to Haldol decanoate and received medication with no complications. On the day of discharge, the patient is not reporting any suicidal or homicidal ideation, intention, and/or plan. He is not reporting any auditory or visualizations. He is denying any paranoia or other delusions. The patient expresses that he does understand that he is going back to halfway. He wishes to be discharged from the psychiatric unit and to return to halfway. He is not reporting any chest pain, shortness of breath, or any side effects of the medications. He is reporting no issues after receiving the Haldol decanoate injection yesterday. The patient was counseled on abstaining from all substances may contribute to worsening his mental health. As the patient is a halfway hold and is not displaying any significant psychotic symptoms at this time, the patient was subsequently discharged back to halfway. Mental status exam: General Appearance: Patient appears to be stated age is alert, pleasant, and cooperative. Patient is in no acute distress and has improved hygiene and grooming Behavior: Patient is calmly standing without any agitated behavior. Eye contact is appropriate. Speech: Patient's speech is fluent and nonpressured. Monotone but spontaneous. Mood/Affect: Patient reports their mood is "ready to go", affect is congruent, blunted, but otherwise euthymic. Suicidality/Homicidality: Patient denies having any suicidal or homicidal ideation intent or plan. Perceptions: Patient denies any auditory or visual hallucinations. Though content/process: There is no evidence of any delusional thought content and thought process is linear and goal-directed. Patient appears to be future oriented. Memory and concentration: AOX3, grossly intact for the purposes of this session. Can spell "WORLD" backwards correctly. Judgment and insight: Improved with guarded prognosis Vital Signs Temp 97.1 F L 03/12/21 07:02 Pulse 107 H 03/13/21 00:01 Resp 16 03/13/21 00:01 BP 98/65 03/13/21 00:01 Pulse Ox 97 03/13/21 00:01 Impression: Schizophrenia Nicotine dependence Plan: -Continue with discharge today as patient has improved and stabilized psychiatrically and is not currently an imminent threat to himself] and/or others. Patient will remain at chronically elevated risk for harm to self and/or others due to his severe mental illness and history of criminal activity. -Continue medications: Patient will be restarted on his medical medications for his diabetes and his high cholesterol We will discharge the patient on Paxil 30 mg by mouth daily to address depression/anxiety, Haldol 3 mg by mouth daily for mood stabilization/psychosis, and Haldol decanoate 50 mg IM every monthly. The patient last received Haldol decanoate 50 mg IM on 03/12/2021 -Patient was counseled on the need for medication compliance and appropriate follow-up at mental health and also primary care for medical issues. Patient verbalized understanding and agreed. -Social work to arrange for transfer to halfway. -Patient counseled on abstaining from recreational drugs and marijuana and alcohol. Was informed/educated on the adverse effects on their physical and mental health. Patient verbally agreed and understood. -Patient was instructed to return to the hospital or seek immediate medical care if their psychiatric or medical symptoms do worsen or reoccur. -Psychoeducation and supportive therapy provided to patient. Risks and benefits of pharmacological treatment versus the risks and benefits of nontreatment weight and discussed. Informed consent discussion held. Common side effects of psychotropics discussed such as, but not limited to headache, GI disturbance, sexual dysfunction, movement disorders, sedation, and orthostatic hypotension. Life threatening and blackbox warnings of prescribed medications also discussed. Potential risks of operating a vehicle or heavy machinery discussed with patient at length. Advised on importance of compliance and a reliable and responsible manner. Patient advised to review FDA consumer labeling of all medications prior to taking. Patient verbalized understanding of potential risks, and agrees with current treatment plan. Patient advised to medically contact physician/emergency personnel if any acute changes in condition occur. Allergies Allergy/AdvReac Type Severity Reaction Status Date / Time ampicillin Allergy Rash/Hives Verified 03/07/21 12:45 Penicillins Allergy Rash/Hives Verified 03/07/21 12:45 Laboratory Results WBC 9.2 k/uL (3.8-10.6) 03/12/21 11:22 RBC 4.45 m/uL (4.30-5.90) 03/12/21 11:22 Hgb 12.8 gm/dL (13.0-17.5) L 03/12/21 11:22 Hct 40.1 % (39.0-53.0) 03/12/21 11:22 MCV 90.0 fL (80.0-100.0) 03/12/21 11:22 MCH 28.7 pg (25.0-35.0) 03/12/21 11:22 MCHC 31.9 g/dL (31.0-37.0) 03/12/21 11:22 RDW 14.0 % (11.5-15.5) 03/12/21 11:22 Plt Count 256 k/uL (150-450) 03/12/21 11:22 MPV 8.4 03/12/21 11:22 Neutrophils % 64 % 03/12/21 11:22 Lymphocytes % 26 % 03/12/21 11:22 Monocytes % 5 % 03/12/21 11:22 Eosinophils % 3 % 03/12/21 11:22 Basophils % 0 % 03/12/21 11:22 Neutrophils # 5.9 k/uL (1.3-7.7) 03/12/21 11:22 Lymphocytes # 2.4 k/uL (1.0-4.8) 03/12/21 11:22 Monocytes # 0.5 k/uL (0-1.0) 03/12/21 11:22 Eosinophils # 0.2 k/uL (0-0.7) 03/12/21 11:22 Basophils # 0.0 k/uL (0-0.2) 03/12/21 11:22 Sodium 135 mmol/L (137-145) L 03/12/21 11:22 Potassium 4.0 mmol/L (3.5-5.1) 03/12/21 11:22 Chloride 98 mmol/L (98-107) 03/12/21 11:22 Carbon Dioxide 28 mmol/L (22-30) 03/12/21 11:22 Anion Gap 9 mmol/L 03/12/21 11:22 BUN 10 mg/dL (9-20) 03/12/21 11:22 Creatinine 0.66 mg/dL (0.66-1.25) 03/12/21 11:22 Est GFR (CKD-EPI)AfAm >90 (>60 ml/min/1.73 sqM) 03/12/21 11:22 Est GFR (CKD-EPI)NonAf >90 (>60 ml/min/1.73 sqM) 03/12/21 11:22 Glucose 321 mg/dL (74-99) H 03/12/21 11:22 POC Glucose (mg/dL) 139 mg/dL (75-99) H 03/12/21 07:48 POC Glu Director Client ID Noreen Mc 03/12/21 07:48 Calcium 8.8 mg/dL (8.4-10.2) 03/12/21 11:22 Total Bilirubin 0.7 mg/dL (0.2-1.3) 03/12/21 11:22 AST 31 U/L (17-59) 03/12/21 11:22 ALT 21 U/L (4-49) 03/12/21 11:22 Alkaline Phosphatase 65 U/L (38-126) 03/12/21 11:22 Total Protein 6.9 g/dL (6.3-8.2) 03/12/21 11:22 Albumin 3.8 g/dL (3.5-5.0) 03/12/21 11:22 Urine Color Yellow 03/07/21 13:25 Urine Appearance Clear (Clear) 03/07/21 13:25 Urine pH 5.0 (5.0-8.0) 03/07/21 13:25 Ur Specific [place] 1.018 (1.001-1.035) 03/07/21 13:25 Urine Protein Trace (Negative) H 03/07/21 13:25 Urine Glucose (UA) 4+ (Negative) H 03/07/21 13:25 Urine Ketones Negative (Negative) 03/07/21 13:25 Urine Blood Negative (Negative) 03/07/21 13:25 Urine Nitrite Negative (Negative) 03/07/21 13:25 Urine Bilirubin Negative (Negative) 03/07/21 13:25 Urine Urobilinogen <2.0 mg/dL (<2.0) 03/07/21 13:25 Ur Leukocyte Esterase Negative (Negative) 03/07/21 13:25 Coronavirus (PCR) Not Detected (Not Detectd) 03/07/21 13:59 Patient Condition at Discharge: Stable Plan - Discharge Summary Discharge Rx Participant: No New Discharge Prescriptions: New metFORMIN HCL [Glucophage] 850 mg PO TID 30 Days tab glipiZIDE [Glucotrol] 5 mg PO DAILY 30 Days tab haloperidoL [Haldol] 3 mg PO DAILY 30 Days tab PARoxetine [Paxil] 30 mg PO DAILY 30 Days tab Haloperidol Decanoate [Haldol D] 50 mg IM QMONTHLY #1 each Nicotine 14Mg/24Hr Patch [Habitrol] 1 patch TRANSDERM DAILY 30 Days patch Atorvastatin [Lipitor] 20 mg PO HS 30 Days tab Discontinued metFORMIN HCL [Glucophage] 850 mg PO TID Ciprofloxacin HCl [Cipro] 500 mg PO BID Atorvastatin [Lipitor] 20 mg PO HS glipiZIDE [Glucotrol] 5 mg PO DAILY Discharge Medication List Atorvastatin [Lipitor] 20 mg PO HS 30 Days tab 03/13/21 [Rx] Haloperidol Decanoate [Haldol D] 50 mg IM QMONTHLY #1 each 03/13/21 [Rx] Nicotine 14Mg/24Hr Patch [Habitrol] 1 patch TRANSDERM DAILY 30 Days patch 03/13/21 [Rx] PARoxetine [Paxil] 30 mg PO DAILY 30 Days tab 03/13/21 [Rx] glipiZIDE [Glucotrol] 5 mg PO DAILY 30 Days tab 03/13/21 [Rx] haloperidoL [Haldol] 3 mg PO DAILY 30 Days tab 03/13/21 [Rx] metFORMIN HCL [Glucophage] 850 mg PO TID 30 Days tab 03/13/21 [Rx] Follow up Appointment(s)/Referral(s): Nonstaff,Physician [Primary Care Provider] - 1-2 days Patient Instructions/Handouts: How to Stop Smoking (DC), Psychotic Disorder (DC) Activity/Diet/Wound Care/Special Instructions: Activity and diet as tolerated. Avoid the use of street drugs and alcohol. Take all medications as prescribed. When you are in need of refills on your medications please contact your medical provider and/or outpatient psychiatrist to have this done. Please go to scheduled outpatient appointment for aftercare treatment. If symptoms return or become worse, call the crisis line at and/or go to the nearest emergency room for evaluation Discharge Disposition: DC/TRANSFER COURT/LAW
[2021-03-13 12:50] LABS: Glucose,Whole Blood 114 mg/dL (75-99)
== END 2021-03-13 15:12 | DRG 885 ==
LOC: EC 10:53 → 3MHU 16:18
PROVIDERS: ADMIT Psychiatry & Neurology Psychiatry; ATTEND Psychiatry & Neurology Psychiatry
DX: F20.9 Schizophrenia, unspecified (principal); E11.9 Type 2 diabetes mellitus without complications; E78.00 Pure hypercholesterolemia, unspecified; E78.5 Hyperlipidemia, unspecified; F17.200 Nicotine dependence, unspecified, uncomplicated; F32.A Depression, unspecified; F41.9 Anxiety disorder, unspecified; I10 Essential (primary) hypertension; Z78.1 Physical restraint status; Z79.84 Long term (current) use of oral hypoglycemic drugs; Z79.899 Other long term (current) drug therapy; Z20.822 Contact with and (suspected) exposure to COVID-19
CPT/HCPCS: 36415; 80053; 81003; 82075; 85025; 87635; 99285